=== PATIENT | female | born 1950 | race Caucasian/White ===

== ENCOUNTER → 2017-01-11 | Outpatient (CLI) | payer MEDICARE, MEDICAID ==
[~2017-01-11] MED LIST: ALBUAER3 INH; AMLO10 PO; ARIP1TAB11 PO; ATEN25TA PO; FENO160T PO; GLIP5TAB8 PO; HYDR-3583 PO; LANTUS2P SC; METF500T PO; METH750T PO; NEXI40CA PO; PARO40TA2 PO; POTA-243 PO; POTA10TA2 PO; TRIA37.53 PO; VALS1TAB63 PO
[2017-01-11 08:52] LABS: HEMATOCRIT 41.2 % (35.0-46.0); MEAN CELL VOLUME 82.8 FL (80.0-100.0); MEAN CORPUSCULAR HEMOGLOBIN 27.8 PG (27.0-34.0); MEAN CORPUSCULAR HGB CONC 33.6 % (32.0-36.0); PLATELET COUNT 276 TH/MM3 (150-450); RED BLOOD COUNT 4.98 MIL/MM3 (4.00-5.30); RED CELL DISTRIBUTION WIDTH 14.8 % (11.6-17.2); REVIEW FLAG FINAL; WHITE BLOOD COUNT 9.8 TH/MM3 (4.0-11.0)
[2017-01-11 09:09] LABS: ALKALINE PHOSPHATASE 124 U/L (45-117); ALT (GPT) 50 U/L (10-53); ANION GAP 8 MEQ/L (5-15); AST (GOT) 32 U/L (15-37); BICARBONATE 29.3 MEQ/L (21.0-32.0); BLOOD UREA NITROGEN 19 MG/DL (7-18); CHLORIDE 101 MEQ/L (98-107); GLOMERULAR FILTRATION RATE 68 ML/MIN (>89); GLUCOSE,FASTING 98 MG/DL (74-99); POTASSIUM 4.6 MEQ/L (3.5-5.1); SODIUM (NA) 138 MEQ/L (136-145); TOTAL BILIRUBIN ADULT 0.4 MG/DL (0.2-1.0)
[2017-01-11 09:44] LABS: WESTERGREN SEDIMENTATION RATE 12 mm/hr (0-30)
[2017-01-11 14:06] LABS: HEMOGLOBIN A1b 2.1 %; HEMOGLOBIN Ao 83.6 %
== END ==
LOC: CLAB 08:21
DX: E11.65 Type 2 diabetes mellitus with hyperglycemia (principal); M05.79 Rheumatoid arthritis with rheumatoid factor of multiple sites without organ or systems involvement
CPT/HCPCS: 36415; 80053; 83036; 85027; 85652

== ENCOUNTER → 2017-03-14 | Outpatient (CLI) | payer MEDICARE, MEDICAID ==
[~2017-03-14] MED LIST changes: +ASPI81TA11 PO; +LANTINJ SQ; +VENTAER INH
== END ==
LOC: CLAB 07:54
PROVIDERS: ATTEND Physician Assistant Surgical
DX: M51.26 Other intervertebral disc displacement, lumbar region (principal)
CPT/HCPCS: 36415; 82565; 84520

== ENCOUNTER → 2017-04-30 | Outpatient (CLI) | payer MEDICARE, MEDICAID ==
[2017-04-30 07:04] LABS: AUTOMATED NEUTROPHIL # 6.2 TH/MM3 (1.8-7.7); BASOPHIL # 0.1 TH/MM3 (0-0.2); BASOPHIL % 0.6 % (0.0-2.0); EOSINOPHIL # 0.1 TH/MM3 (0-0.4); EOSINOPHIL % 1.1 % (0.0-4.0); HEMATOCRIT 38.9 % (35.0-46.0); HEMO FLAGS DIFF FINAL; LYMPH % 38.9 % (9.0-44.0); LYMPHOCYTE # 4.8 TH/MM3 (1.0-4.8); MEAN CELL VOLUME 84.2 FL (80.0-100.0); MEAN CORPUSCULAR HEMOGLOBIN 28.4 PG (27.0-34.0); MEAN CORPUSCULAR HGB CONC 33.7 % (32.0-36.0); MONO % 9.7 % (0.0-8.0); NEUT % 49.7 % (16.0-70.0); PLATELET COUNT 331 TH/MM3 (150-450); RED BLOOD COUNT 4.61 MIL/MM3 (4.00-5.30); RED CELL DISTRIBUTION WIDTH 15.8 % (11.6-17.2); WHITE BLOOD COUNT 12.4 TH/MM3 (4.0-11.0)
[2017-04-30 07:21] LABS: MICRO ALBUMIN RANDOM URINE RAW 18.4 MG/L (0.0-30.0)
[2017-04-30 07:32] LABS: ANION GAP 7 MEQ/L (5-15); BICARBONATE 30.1 MEQ/L (21.0-32.0); BLOOD UREA NITROGEN 12 MG/DL (7-18); CHLORIDE 102 MEQ/L (98-107); GLOMERULAR FILTRATION RATE 85 ML/MIN (>89); GLUCOSE,FASTING 103 MG/DL (74-99); POTASSIUM 4.6 MEQ/L (3.5-5.1); SODIUM (NA) 139 MEQ/L (136-145)
[2017-04-30 07:40] LABS: HDL CHOLESTEROL 47.6 MG/DL (40.0-60.0); LDL CHOLESTEROL 129 MG/DL (0-99)
[2017-04-30 15:40] LABS: HEMOGLOBIN A1a 1.1 %; HEMOGLOBIN A1b 2.3 %; HEMOGLOBIN Ao 83.1 %
== END ==
LOC: CLAB 06:37
PROVIDERS: ATTEND Physician Assistant Surgical
DX: M51.26 Other intervertebral disc displacement, lumbar region (principal); E11.65 Type 2 diabetes mellitus with hyperglycemia
CPT/HCPCS: 36415; 80048; 80061; 82043; 83036; 85025; 86140

== ENCOUNTER 2017-05-06 08:47 | Observation (INO) | payer MEDICARE, OTHER ==
[2017-05-06] VITALS (7 sets, daily range): BP systolic 120–179; BP diastolic 59–82; PULSE 66–74; RESP 17–18; TEMP 97.3–98.6; O2SAT 96–98
[~2017-05-06] VITALS: Ht 175.3 cm; Wt 82.0 kg
[~2017-05-06 08:47] MED LIST changes: -ASPI81TA11 PO; -LANTINJ SQ; -VENTAER INH
[2017-05-06] MEDS ORDERED: SODIUM CHLORIDE 0.9% FLUSH 10 ML FLUSH IVF PRN (09:00)
[2017-05-06] MEDS ORDERED: SODIUM CHLORID 0.9% 500 ML INJ 500 ML IV ONE (09:00)
[2017-05-06] MEDS ORDERED: ASPIRIN 325 MG TAB PO ONE (09:00)
[2017-05-06] MEDS: NITROGLYCERIN 0.4 MG SL 25 TABS/BTL SL SCH ×3 (09:05→09:16)
[2017-05-06] MEDS ORDERED: LANTINJ SQ (09:07)
[2017-05-06] MEDS ORDERED: VENTAER INH (09:07)
--- NOTE | 2017-05-06 09:13 | PD ---
HPI Chief Complaint: Chest Pain Time Seen by Provider: 08:53 Travel History International Travel<30 days: No Contact w/Intl Traveler<30days: No Traveled to known affect area: No History of Present Illness HPI 66 yo F c/o cp x 30 hours, first noticed after waking up yesterday morning at 3am. Location is left chest with radiation to the back. Pain is worse with inspiration. No radiation of pain at rest. No exertional component. No shortness of breath reported. + Hx of a "smoker's cough." No fever. No similar prior pains. Pt underwent cath in 2005 which revealed normal coronary arteries. +Hx tobaccoism, HTN and DM. +Family hx CAD. 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 One asa yesterday was helpful somewhat. PFSH Past Medical History Cardiac Catheterization: Yes Cardiovascular Problems: Yes COPD: Yes Diabetes: Yes Patient Takes Glucophage: Yes Diminished Hearing: No GERD: Yes Hypertension: Yes Respiratory: Yes Influenza Vaccination: No ?: Not Past Surgical History Cholecystectomy: Yes Hysterectomy: Yes Neurologic Surgery: Yes (discectomy) Social History Alcohol Use: No Tobacco Use: Yes Substance Use: No Allergies-Medications (Allergen,Severity, Reaction): Coded Allergies: Lipitor (Verified Allergy, Severe, 05/06/17) Lovastatin (Verified Allergy, Severe, ANAPHYLAXIS TO STATINS, 05/06/17) Sulfa (Verified Allergy, Severe, Itching, 05/06/17) Reported Meds & Prescriptions Reported Meds & Active Scripts Active Glipizide 5 Mg Tab 5 Mg PO BIDAC Take 30 minutes before a meal Atenolol 25 Mg Tab 25 Mg PO DAILY Triamterene-Hydrochlorothiazide 37.5-25 Mg Cap 1 Cap PO DAILY Norvasc (Amlodipine Besylate) 10 Mg Tab 10 Mg PO DAILY Nexium (Esomeprazole DR) 40 Mg Capdr 40 Mg PO DAILY Reported Lantus Solostar Pen Inj (Insulin Glargine) 300 Unit/3 Ml Pen 1 Units SQ DIRECTED Ventolin Hfa 18 GM Inh (Albuterol Sulfate) 90 Mcg/Act Aer 2 Puff INH Q4-6H PRN Paroxetine (Paroxetine HCl) 40 Mg Tab 40 Mg PO DAILY Hydrocodone-Acetaminophen 10-325 mg Tab 1 Tab PO Q4H PRN Aripiprazole 5 Mg Tab 5 Mg PO DAILY Valsartan 40 Mg Tab 20 Mg PO BID Potassium Chloride ER (Potassium Chloride) 10 Meq Tab 10 Meq PO DAILY Metformin (Metformin HCl) 500 Mg Tab 500 Mg PO BIDPC With meals Review of Systems Except as stated in HPI: all other systems reviewed are Neg General / Constitutional: No: Fever Respiratory: Positive: Cough Physical Exam Narrative GENERAL: 66 yo F, pleasant, NAD, WNWD SKIN: Warm and dry. HEAD: Atraumatic. Normocephalic. EYES: Pupils equal and round. No scleral icterus. No injection or drainage. ENT: No nasal bleeding or discharge. Mucous membranes pink and moist. NECK: Trachea midline. No JVD. CARDIOVASCULAR: Regular rate and rhythm. RESPIRATORY: No accessory muscle use. Clear to auscultation. Breath sounds equal bilaterally. GASTROINTESTINAL: Abdomen soft, non-tender, nondistended. Hepatic and splenic margins not palpable. MUSCULOSKELETAL: Extremities without clubbing, cyanosis, or edema. No obvious deformities. No sign of DVT. NEUROLOGICAL: Awake and alert. No obvious cranial nerve deficits. Motor grossly within normal limits. Five out of 5 muscle strength in the arms and legs. Normal speech. PSYCHIATRIC: Appropriate mood and affect; insight and judgment normal. Data Data Last Documented VS Vital Signs Date Time Temp Pulse Resp B/P Pulse Ox O2 Delivery O2 Flow Rate FiO2 05/06/17 10:25 Room Air 05/06/17 10:20 67 18 125/61 96 05/06/17 08:54 98.6 Orders Electrocardiogram (05/06/17 08:58) Basic Metabolic Panel (Bmp) (05/06/17 08:58) Ckmb (Isoenzyme) Profile (05/06/17 08:58) Complete Blood Count With Diff (05/06/17 08:58) Magnesium (Mg) (05/06/17 08:58) Prothrombin Time / Inr (Pt) (05/06/17 08:58) Act Partial Throm Time (Ptt) (05/06/17 08:58) Troponin I (05/06/17 08:58) Chest, Single Ap (05/06/17 08:58) Ecg Monitoring (05/06/17 08:58) Bilateral Bp Monitoring (05/06/17 08:58) Iv Access Insert/Monitor (05/06/17 08:58) Oximetry (05/06/17 08:58) Oxygen Administration (05/06/17 08:58) Aspirin (Aspirin) (05/06/17 09:00) Sodium Chloride 0.9% Flush (Ns Flush) (05/06/17 09:00) Nitroglycerin Sl (Nitrostat Sl) (05/06/17 09:00) Sodium Chlorid 0.9% 500 Ml Inj (Ns 500 M (05/06/17 09:00) Ct Pulmonary Angiogram (05/06/17 09:01) Magnesium Sulfate 1 Gm Premix (Magnesium (05/06/17 10:15) Iohexol 350 Inj (Omnipaque 350 Inj) (05/06/17 10:14) Admit Order (Ed Use Only) (05/06/17 10:46) Labs Laboratory Tests Test 05/06/17 08:55 White Blood Count 15.2 TH/MM3 Red Blood Count 4.79 MIL/MM3 Hemoglobin 13.5 GM/DL Hematocrit 40.2 % Mean Corpuscular Volume 83.9 FL Mean Corpuscular Hemoglobin 28.2 PG Mean Corpuscular Hemoglobin 33.6 % Concent Red Cell Distribution Width 15.4 % Platelet Count 370 TH/MM3 Mean Platelet Volume 7.6 FL Neutrophils (%) (Auto) 57.6 % Lymphocytes (%) (Auto) 32.6 % Monocytes (%) (Auto) 7.7 % Eosinophils (%) (Auto) 1.1 % Basophils (%) (Auto) 1.0 % Neutrophils # (Auto) 8.6 TH/MM3 Lymphocytes # (Auto) 5.0 TH/MM3 Monocytes # (Auto) 1.2 TH/MM3 Eosinophils # (Auto) 0.2 TH/MM3 Basophils # (Auto) 0.2 TH/MM3 CBC Comment DIFF FINAL Differential Comment Prothrombin Time 10.7 SEC Prothromb Time International 1.0 RATIO Ratio Activated Partial 25.9 SEC Thromboplast Time Sodium Level 139 MEQ/L Potassium Level 4.1 MEQ/L Chloride Level 105 MEQ/L Carbon Dioxide Level 24.7 MEQ/L Anion Gap 9 MEQ/L Blood Urea Nitrogen 17 MG/DL Creatinine 0.70 MG/DL Estimat Glomerular Filtration 84 ML/MIN Rate Random Glucose 211 MG/DL Calcium Level 9.4 MG/DL Magnesium Level 1.1 MG/DL Total Creatine Kinase 63 U/L Troponin I LESS THAN 0.02 NG/ML MDM Medical Decision Making Medical Screen Exam Complete: Yes Emergency Medical Condition: Yes Medical Record Reviewed: Yes Differential Diagnosis NSTEMI, unstable angina, coronary vasospasm, PE, PTX, aortic dissection, pericarditis, myocarditis, endocarditis, PNA, esophageal disease, aneurysm, musculoskeletal etiologies, anxiety, cocaine/sympathomimetic abuse Narrative Course EKG shows sinus arrhythmia rhythm with sinus arrhythmia, rate 67 no T-wave inversion and flattening or ischemic injury pattern otherwise Last [address] Angiography 05/06/17 09 Signed Impressions: Service Date/Time: Saturday, May 06, 2017 09:57 - CONCLUSION: 1. No evidence of pulmonary embolism. Dat Sinclair MD Chest X-Ray 05/06/17 0858 Signed Impressions: Service Date/Time: Saturday, May 06, 2017 09:27 - CONCLUSION: No acute disease. Dat Sinclair MD CBC & BMP Diagram 05/06/17 08:55 Tn < 0.02 Mg 1.1 INR 1.0 1gIV Mg started. [employer] protocol considered next most reasonable step for patient. Pt is agreeable with plan. D/w Dr Karimi. Diagnosis Primary Impression: Chest pain Qualified Code: R07.9 - Chest pain, unspecified type Additional Impression: Pulmonary nodule Admitting Information Admitting Physician Requests: Observation Jeb Gamez MD May 06, 2017 09:13
[2017-05-06 09:27] LABS: APTT (PATIENT) 25.9 SEC (24.3-30.1); PROTHROMBIN TIME - PATIENT 10.7 SEC (9.8-11.6)
--- NOTE | 2017-05-06 09:44 | RADRPT ---
EXAM DATE/TIME: 05/06/2017 09:27 [facility] COMPARISON: No previous studies available for comparison. INDICATIONS : Chest pain MEDICAL HISTORY : Chronic obstructive pulmonary disease. Emphysema. Diabetes mellitus type II. SURGICAL HISTORY : None. ENCOUNTER: Initial ACUITY: 2 days PAIN SCORE: 5/10 LOCATION: Bilateral middle chest FINDINGS: A single view of the chest demonstrates the lungs to be symmetrically aerated without evidence of mas s, infiltrate or effusion. The cardiomediastinal contours are unremarkable. Osseous structures are intact. CONCLUSION: No acute disease. Dat Sinclair MD on May 06, 2017 at 9:41 Board Certified Radiologist. This report was verified electronically.
[2017-05-06 09:50] LABS: BICARBONATE 24.7 MEQ/L (21.0-32.0); MAGNESIUM 1.1 MG/DL (1.5-2.5)
[2017-05-06 09:52] LABS: AUTOMATED NEUTROPHIL # 8.6 TH/MM3 (1.8-7.7); BASOPHIL # 0.2 TH/MM3 (0-0.2); EOSINOPHIL # 0.2 TH/MM3 (0-0.4); EOSINOPHIL % 1.1 % (0.0-4.0); HEMATOCRIT 40.2 % (35.0-46.0); HEMO FLAGS DIFF FINAL; LYMPH % 32.6 % (9.0-44.0); MEAN CELL VOLUME 83.9 FL (80.0-100.0); MEAN CORPUSCULAR HEMOGLOBIN 28.2 PG (27.0-34.0); MEAN CORPUSCULAR HGB CONC 33.6 % (32.0-36.0); MONO % 7.7 % (0.0-8.0); NEUT % 57.6 % (16.0-70.0); PLATELET COUNT 370 TH/MM3 (150-450); RED BLOOD COUNT 4.79 MIL/MM3 (4.00-5.30); RED CELL DISTRIBUTION WIDTH 15.4 % (11.6-17.2); WHITE BLOOD COUNT 15.2 TH/MM3 (4.0-11.0)
[2017-05-06 09:53] LABS: GLOMERULAR FILTRATION RATE 84 ML/MIN (>89)
[2017-05-06 09:54] LABS: ANION GAP 9 MEQ/L (5-15); CHLORIDE 105 MEQ/L (98-107); POTASSIUM 4.1 MEQ/L (3.5-5.1); SODIUM (NA) 139 MEQ/L (136-145)
[2017-05-06 09:55] LABS: BLOOD UREA NITROGEN 17 MG/DL (7-18)
[2017-05-06 09:58] LABS: CREATINE KINASE 63 U/L (26-192)
[2017-05-06] MEDS ORDERED: IOHEXOL 350 MG/ML 10 ML VIAL (for RAD DIAG) IV ONE (10:14)
[2017-05-06] MEDS ORDERED: MAGNESIUM SULFATE 1 GM PREMIX 100 ML IV ONE (10:15)
--- NOTE | 2017-05-06 10:20 | RADRPT ---
EXAM DATE/TIME: 05/06/2017 09:57 [facility] COMPARISON: CHEST SINGLE AP, May 06, 2017, 9:27. INDICATIONS : Left sided chest pain radiating to back. Evaluate for embolism. IV CONTRAST: 65 cc Omnipaque 350 (iohexol) IV RADIATION DOSE: 19.95 CTDIvol (mGy) MEDICAL HISTORY : Chronic obstructive pulmonary disease. Gastroesophageal reflux disease. Hypertension.Diabetes. SURGICAL HISTORY : Cholecystectomy. Hysterectomy. ENCOUNTER: Initial ACUITY: 2 days PAIN SCALE: 3/10 LOCATION: Left chest TECHNIQUE: Volumetric scanning of the chest was performed using a pulmonary embolism protocol MIP images were re constructed. Using automated exposure control and adjustment of the mA and/or kV according to patien t size, radiation dose was kept as low as reasonably achievable to obtain optimal diagnostic quality images. DICOM format image data is available electronically for review and comparison. FINDINGS: Mild diffuse subpleural interstitial prominence bilaterally of unknown chronicity. Subcentimeter lymp h nodes in the mediastinum and hilar regions. Coronary artery calcification is noted. Atherosclerotic plaquing of the aorta is present. There are no effusions. There is no evidence of pulmonary embolism . No consolidation. CONCLUSION: 1. No evidence of pulmonary embolism. Dat Sinclair MD on May 06, 2017 at 10:16 Board Certified Radiologist. This report was verified electronically.
[2017-05-06] MEDS ORDERED: LACTULOSE SYRUP 20 GM/30 ML CUP PO PRN (10:45)
[2017-05-06] MEDS ORDERED: SENNOSIDES 8.6 MG TAB PO PRN (10:45)
[2017-05-06] MEDS ORDERED: NALOXONE HCL 0.4 MG/ML AMP IV PRN (10:45)
[2017-05-06] MEDS ORDERED: MAGNESIUM HYDROXIDE SUSP 30 ML CUP PO PRN (10:45)
[2017-05-06] MEDS ORDERED: SODIUM CHLOR 0.9% 1000 ML INJ 1,000 ML IV SCH (10:45)
[2017-05-06] MEDS ORDERED: ONDANSETRON HCL 4 MG/2 ML VIAL IVP PRN (10:45)
[2017-05-06] MEDS ORDERED: ACETAMINOPHEN 325 MG TAB PO PRN (10:45)
[2017-05-06] MEDS ORDERED: BISACODYL 10 MG SUPP RECTAL PRN (10:45)
[2017-05-06] MEDS ORDERED: SODIUM CHLORIDE 0.9% FLUSH 10 ML FLUSH IV FLUSH PRN (10:45)
[2017-05-06] MEDS ORDERED: METFORMIN HOLD POST IV CONTRAST SCH (12:15)
--- NOTE | 2017-05-06 13:25 | HHI.HP ---
HPI Service [facility] Primary Care Physician Jeanie Mitchell MD Admission Diagnosis Chest Pain; HypoMg Diagnoses: Chief Complaint: Chest pain Travel History International Travel<30 Days: No Contact w/Intl Traveler <30 Da: No Traveled to Known Affected Are: No History of Present Illness Ms. Gupta is a pleasant 66-year-old female with a history of diabetes mellitus, COPD, rheumatoid arthritis, hypertension, tobacco abuse who presents to the emergency department due to chest pain. On 05/05/2017 at around 3 AM patient woke up around 3:00 and started experiencing left-sided chest pain , abdominal in nature, radiating to her back. She denies any nausea or vomiting but reports diaphoresis. Her pain was about 5 out of 10 and persisted until she presented to the emergency department on 05/06/2017 where her pain subsided with nitroglycerin. She took aspirin 81 mg at home. She has COPD and denies any cough more than usual, fever or chills. No abdominal pain. No changes in bowel or bladder habits. Review of Systems Except as stated in HPI: all other systems reviewed are Neg Past Family Social History Past Medical History Hypertension, rheumatoid arthritis, osteoarthritis, COPD, diabetes mellitus Past Surgical History 2 back surgeries. Reported Medications Glipizide 5 Mg Tab 5 Mg PO BIDAC Take 30 minutes before a meal Atenolol 25 Mg Tab 25 Mg PO DAILY Triamterene-Hydrochlorothiazide 37.5-25 Mg Cap 1 Cap PO DAILY Norvasc (Amlodipine Besylate) 10 Mg Tab 10 Mg PO DAILY Nexium (Esomeprazole DR) 40 Mg Capdr 40 Mg PO DAILY Reported Lantus Solostar Pen Inj (Insulin Glargine) 300 Unit/3 Ml Pen 1 Units SQ DIRECTED Ventolin Hfa 18 GM Inh (Albuterol Sulfate) 90 Mcg/Act Aer 2 Puff INH Q4-6H PRN Paroxetine (Paroxetine HCl) 40 Mg Tab 40 Mg PO DAILY Hydrocodone-Acetaminophen 10-325 mg Tab 1 Tab PO Q4H PRN Aripiprazole 5 Mg Tab 5 Mg PO DAILY Valsartan 40 Mg Tab 20 Mg PO BID Potassium Chloride ER (Potassium Chloride) 10 Meq Tab 10 Meq PO DAILY Metformin (Metformin HCl) 500 Mg Tab 500 Mg PO BIDPC With meals Allergies: Coded Allergies: Lipitor (Verified Allergy, Severe, 05/06/17) Lovastatin (Verified Allergy, Severe, ANAPHYLAXIS TO STATINS, 05/06/17) Sulfa (Verified Allergy, Severe, Itching, 05/06/17) Family History Mother and father had diabetes mellitus, heart disease and hypertension. Social History Patient used to smoke 2 packs a day, started smoking when she was 15. She currently smokes 1 pack a day. Denies using any illicit drugs or alcohol. Physical Exam Vital Signs Vital Signs Date Time Temp Pulse Resp B/P Pulse Ox O2 Delivery O2 Flow Rate FiO2 05/06/17 12:15 97.3 68 17 138/77 96 05/06/17 11:43 66 18 153/82 98 Room Air 05/06/17 10:25 Room Air 05/06/17 10:20 67 18 125/61 96 Room Air 05/06/17 09:26 66 18 120/59 98 Room Air 05/06/17 09:25 18 05/06/17 09:11 67 18 147/77 98 Room Air 05/06/17 09:03 98 Room Air 05/06/17 08:56 74 98 Room Air 05/06/17 08:54 98.6 74 18 179/77 98 Physical Exam GENERAL: This is a well-nourished, well-developed patient, in no apparent distress. SKIN: No rashes, ecchymoses or lesions. Warm and dry. HEAD: Atraumatic. Normocephalic. No temporal or scalp tenderness. EYES: Pupils equal round and reactive. No injection or drainage. ENT: Nose without bleeding, purulent drainage or septal hematoma. Airway patent. NECK: Trachea midline. No lymphadenopathy. Supple, nontender, no meningeal signs. CARDIOVASCULAR: Regular rate and rhythm without murmurs, gallops, or rubs. No JVD. RESPIRATORY: Moderate air entry. No wheezes, rales, or rhonchi. GASTROINTESTINAL: Abdomen soft, non-tender, nondistended. No guarding. MUSCULOSKELETAL: Extremities without clubbing, cyanosis, or edema. NEUROLOGICAL: Awake and alert. Cranial nerves II through XII intact. No focal neurological deficits. Normal speech. Laboratory Laboratory Tests Test 05/06/17 05/06/17 08:55 11:55 White Blood Count 15.2 Red Blood Count 4.79 Hemoglobin 13.5 Hematocrit 40.2 Mean Corpuscular Volume 83.9 Mean Corpuscular Hemoglobin 28.2 Mean Corpuscular Hemoglobin 33.6 Concent Red Cell Distribution Width 15.4 Platelet Count 370 Mean Platelet Volume 7.6 Neutrophils (%) (Auto) 57.6 Lymphocytes (%) (Auto) 32.6 Monocytes (%) (Auto) 7.7 Eosinophils (%) (Auto) 1.1 Basophils (%) (Auto) 1.0 Neutrophils # (Auto) 8.6 Lymphocytes # (Auto) 5.0 Monocytes # (Auto) 1.2 Eosinophils # (Auto) 0.2 Basophils # (Auto) 0.2 CBC Comment DIFF FINAL Differential Comment Prothrombin Time 10.7 Prothromb Time International 1.0 Ratio Activated Partial 25.9 Thromboplast Time Sodium Level 139 Potassium Level 4.1 Chloride Level 105 Carbon Dioxide Level 24.7 Anion Gap 9 Blood Urea Nitrogen 17 Creatinine 0.70 Estimat Glomerular Filtration 84 Rate Random Glucose 211 Calcium Level 9.4 Magnesium Level 1.1 Total Creatine Kinase 63 Troponin I LESS THAN 0.02 LESS THAN 0.02 Result Diagram: 05/06/17 0855 05/06/17 [address] Angiography 05/06/17 0901 Signed Impressions: Service Date/Time: Saturday, May 06, 2017 09:57 - CONCLUSION: 1. No evidence of pulmonary embolism. Dat Sinclair MD Chest X-Ray 05/06/17 0858 Signed Impressions: Service Date/Time: Saturday, May 06, 2017 09:27 - CONCLUSION: No acute disease. Dat Sinclair MD Assessment and Plan Problem List: (1) Chest pain ICD Code: R07.9 Status: Acute (2) Hypertension ICD Code: I10 Status: Acute (3) Diabetes ICD Code: E11.9 Status: Acute (4) COPD (chronic obstructive pulmonary disease) ICD Code: J44.9 Status: Acute Assessment and Plan Ms. Gupta is a pleasant 66-year-old female with a history of hypertension, diabetes mellitus, Percocet abuse who presents to the emergency department due to chest pain that started on 05/05/2017 at around 3 AM. Patient had left-sided chest pain radiating to her back and associated with diaphoresis. Her pain subsided after nitroglycerin in the ED. - Acute chest pain - Patient has high risk features including tobacco use, hypertension, diabetes mellitus. - We'll obtain a nuclear stress test. Patient had coffee at 4 AM and as such nuclear stress test did not be completed today. - Continue aspirin 81 mg daily. Will continue beta patty after nuclear stress test. - We'll obtain lipid profile and calculated ASCVD score. Based on ASCVD score will consider statin. - Diabetes mellitus - Start Levemir 10 units daily at bedtime and sliding scale insulin. - Hypomagnesemia - magnesium 1.1. We'll replace with intravenous magnesium sulfate 2 g now and 2 g at night. - Hypertension - continue valsartan 20 mg twice a day, triamtereneHCTZ 30 7. 5 25 milligrams by mouth daily. - Anxiety, depression - continue Paxil, aripiprazole. Full code. Lovenox 40mg Q24hrs. Problem Qualifiers (1) Chest pain: Qualified Code: R07.9 - Chest pain, unspecified type Narcisa Karimi DO May 06, 2017 1:25 pm
--- NOTE | 2017-05-06 13:25 | EKG ---
Date Performed: 05/06/2017 Time Performed: 11:47:38 PTAGE: 66 years EKG: Sinus rhythm WITH MARKED SINUS ARRHYTHMIA POSSIBLE RIGHT VENTRICULAR CONDUCTION DELAY BORDERLINE ECG PREVIOUS TRACING : 05/06/2017 08.57 Compared to prior tracing no significant change DOCTOR: Michelle Miller Interpretating Date/Time 05/06/2017 13:19:50
--- NOTE | 2017-05-06 13:43 | EKG ---
Date Performed: 05/06/2017 Time Performed: 08:57:47 PTAGE: 66 years EKG: Sinus rhythm WITH MARKED SINUS ARRHYTHMIA POSSIBLE RIGHT VENTRICULAR CONDUCTION DELAY Compared to previous tracin g, the patient no longer has enough voltage to make a diagnosis of Left ventricular hypertrophy, ther e's been an overall improvement in the nonspecific ST-T wave changes BORDERLINE ECG PREVIOUS TRACING : 11/20/2002 10.17 DOCTOR: Michelle Miller Interpretating Date/Time 05/06/2017 13:43:13
[2017-05-06] MEDS ORDERED: GLUCAGON 1 MG/ML VIAL OTHER PRN (14:30)
[2017-05-06] MEDS ORDERED: DEXTROSE 50% IN WATER 50 ML VIAL(D50) IV PRN (14:30)
[2017-05-06] MEDS: MAGNESIUM SULFATE 1 GM PREMIX 100 ML IV SCH ×2 (14:36→15:27)
[2017-05-06] MEDS ORDERED: ENOXAPARIN SODIUM 40 MG/0.4 ML SYRINGE SQ SCH (15:00)
[2017-05-06] MEDS ORDERED: INSULIN ASPART SUPPLEMENTAL SCALE SQ SCH (16:00)
[2017-05-06] MEDS ORDERED: REGADENOSON INJ 0.4 MG/5 ML SYR IV ONE (17:34)
--- NOTE | 2017-05-06 18:36 | RADRPT ---
EXAM DATE/TIME: 05/06/2017 16:50 [facility] COMPARISON: No previous studies available for comparison. INDICATIONS : Left sided chest pain radiating to back for two days. Angina. DOSE: 27.4 mCi Tc99m Myoview at stress. 8.2 mCi Tc99m Myoview at rest. 0.4 mg Lexiscan STRESS SYMPTOMS: Chest pain and dyspnea. EJECTION FRACTION: 66% MEDICAL HISTORY : Gastroesophageal reflux disease. Chronic obstructive pulmonary disease. Diabetes mellitus type 2. Hyp ertension. SURGICAL HISTORY : Cholecystectomy. Hysterectomy. ENCOUNTER: Initial ACUITY: 2 days PAIN SCALE: 6/10 LOCATION: Left chest TECHNIQUE: The patient underwent pharmacologic stress with infusion of prescribed dose. Continuous ECG tracing was monitored during stress. Gated SPECT imaging was performed after stress and conventional SPECT i maging was performed at rest. The examination was performed on a SPECT/CT scanner, both attenuation and non-corrected datasets were reviewed. FINDINGS: DISTRIBUTION: The maximum perfused segment at stress is in the lateral wall. PERFUSION STUDY: The pattern of perfusion at stress is within normal limits. GATED STUDY: There is intact wall motion and thickening without hypokinetic or dyskinetic segments. CONCLUSION: No areas of ischemia are seen. RISK CATEGORY: Low (<1% Annual Mortality Rate) Marcos Gordon MD on May 06, 2017 at 18:33 Board Certified Radiologist. This report was verified electronically.
[2017-05-06] MEDS ORDERED: ASPI81TA11 PO (19:19)
[2017-05-06] MEDS ORDERED: MAGNESIUM SULFATE 1 GM PREMIX 100 ML IV SCH (21:00)
[2017-05-06] MEDS ORDERED: DOCUSATE SODIUM 50 MG/SENNA 8.6 MG TAB PO SCH (21:00)
[2017-05-06] MEDS ORDERED: SODIUM CHLORIDE 0.9% FLUSH 10 ML FLUSH IV FLUSH SCH (21:00)
[2017-05-06] MEDS ORDERED: INSULIN DETEMIR 100 UNITS/ML VIAL SQ SCH (21:00)
[2017-05-06] MEDS ORDERED: VALSARTAN 40 MG TAB PO SCH (21:00)
[2017-05-07] MEDS ORDERED: PARoxetine HCL 20 MG TAB PO SCH (09:00)
[2017-05-07] MEDS ORDERED: PANTOPRAZOLE SOD 40 MG DELAYED RELEASE TAB PO SCH (09:00)
[2017-05-07] MEDS ORDERED: ARIPiprazole 5 MG TAB PO SCH (09:00)
[2017-05-07] MEDS ORDERED: TRIAMTERENE/HCTZ 37.5 MG/25 MG CAP PO SCH (09:00)
--- NOTE | 2017-05-07 15:00 | EKG ---
Date Performed: 05/06/2017 Time Performed: 15:03:31 PTAGE: 66 years EKG: Sinus rhythm WITH MARKED SINUS ARRHYTHMIA Since previous tracing, no significant change noted BORDERLINE ECG PREVIOUS TRACING : 05/06/2017 11.47 DOCTOR: Emanuel Daiz Interpretating Date/Time 05/07/2017 14:59:15
--- NOTE | 2017-05-09 07:38 | TR ---
Date Performed: 05/06/2017 Time Performed: 17:09:01 DOCTOR: Kartik Stephens DRUG LIST: CLINICAL HISTORY: REASON FOR TEST: REASON FOR ENDING: OBSERVATION: CONCLUSION: Lexiscan stress test was performed under standard four minute protocol. Radionuclid e was injected one minute prior to ending the test. No electrocardiographic abormalities were present to suggest ischemia. Nuclear imaging and interpretation are pending. COMMENTS:
[2017-05-10] MEDS ORDERED: NEXI40CA PO (11:16)
== END 2017-05-06 19:44 | disposition home or self-care (01) ==
LOC: PHED 08:47 → PHEDA 10:48 → PH3B 12:01
PROVIDERS: ADMIT Hospitalist; ATTEND Hospitalist
DX: R07.89 Other chest pain (principal); R06.00 Dyspnea, unspecified; R91.1 Solitary pulmonary nodule; I49.8 Other specified cardiac arrhythmias; E83.42 Hypomagnesemia; R61 Generalized hyperhidrosis; M54.9 Dorsalgia, unspecified; I25.119 Atherosclerotic heart disease of native coronary artery with unspecified angina pectoris; I10 Essential (primary) hypertension; E11.9 Type 2 diabetes mellitus without complications; J44.9 Chronic obstructive pulmonary disease, unspecified; M06.9 Rheumatoid arthritis, unspecified; K21.9 Gastro-esophageal reflux disease without esophagitis; F41.9 Anxiety disorder, unspecified; F32.9 Major depressive disorder, single episode, unspecified; M19.90 Unspecified osteoarthritis, unspecified site; F17.200 Nicotine dependence, unspecified, uncomplicated; Z79.899 Other long term (current) drug therapy; Z79.84 Long term (current) use of oral hypoglycemic drugs
CPT/HCPCS: 71010; 71275; 78452; 80048; 82550; 83735; 84484; 85025; 85610; 85730; 93005; 93017; 96361; 96365; 99285; A9502; G0378; J1650; J2785; J3475; J7030; J7040; Q9967

== ENCOUNTER → 2017-05-15 | Outpatient (CLI) | payer MEDICARE, OTHER ==
[~2017-05-15] MED LIST changes: -ALBUAER3 INH; +ARIP1TAB12 PO; +ASPI81TA11 PO; -FENO160T PO; +LANTINJ SQ; -LANTUS2P SC; -METH750T PO; -POTA-243 PO; +VENTAER INH
[2017-05-15 08:19] LABS: AUTOMATED NEUTROPHIL # 7.8 TH/MM3 (1.8-7.7); BASOPHIL # 0.1 TH/MM3 (0-0.2); BASOPHIL % 0.4 % (0.0-2.0); EOSINOPHIL # 0.1 TH/MM3 (0-0.4); EOSINOPHIL % 0.7 % (0.0-4.0); HEMATOCRIT 39.5 % (35.0-46.0); HEMO FLAGS DIFF FINAL; LYMPH % 33.5 % (9.0-44.0); LYMPHOCYTE # 4.5 TH/MM3 (1.0-4.8); MEAN CELL VOLUME 84.7 FL (80.0-100.0); MEAN CORPUSCULAR HEMOGLOBIN 27.2 PG (27.0-34.0); MEAN CORPUSCULAR HGB CONC 32.1 % (32.0-36.0); MONO % 7.1 % (0.0-8.0); NEUT % 58.3 % (16.0-70.0); PLATELET COUNT 336 TH/MM3 (150-450); RED BLOOD COUNT 4.66 MIL/MM3 (4.00-5.30); RED CELL DISTRIBUTION WIDTH 16.6 % (11.6-17.2); WHITE BLOOD COUNT 13.4 TH/MM3 (4.0-11.0)
== END ==
LOC: CLAB 07:04
PROVIDERS: ATTEND Physician Assistant Surgical
DX: M51.26 Other intervertebral disc displacement, lumbar region (principal); R89.9 Unspecified abnormal finding in specimens from other organs, systems and tissues
CPT/HCPCS: 36415; 85025; 86140

== ENCOUNTER → 2017-06-01 | Outpatient (CLI) | payer MEDICARE, OTHER ==
[~2017-06-01] MED LIST changes: -ARIP1TAB11 PO
== END ==
LOC: CLAB 08:59
PROVIDERS: ATTEND Physician Assistant Surgical
DX: M54.5 Low back pain (principal)
CPT/HCPCS: 36415; 82565; 84520

== ENCOUNTER → 2017-08-13 | Outpatient (CLI) | payer MEDICARE, OTHER ==
[~2017-08-13] MED LIST changes: +ARIP1TAB11 PO; +LEVO750T3 PO; +NYST1000 SWISH-SWAL
[2017-08-13 07:47] LABS: ANION GAP 6 MEQ/L (5-15); BLOOD UREA NITROGEN 11 MG/DL (7-18); CHLORIDE 102 MEQ/L (98-107); GLUCOSE,FASTING 87 MG/DL (74-99); POTASSIUM 3.9 MEQ/L (3.5-5.1); SODIUM (NA) 134 MEQ/L (136-145)
[2017-08-13 07:48] LABS: GLOMERULAR FILTRATION RATE 87 ML/MIN (>89)
[2017-08-13 07:49] LABS: HDL CHOLESTEROL 57.6 MG/DL (40.0-60.0); INDIRECT BILIRUBIN 0.2 MG/DL (0.0-0.8); TOTAL BILIRUBIN ADULT 0.3 MG/DL (0.2-1.0)
[2017-08-13 09:57] LABS: HEMOGLOBIN A1a 1.1 %; HEMOGLOBIN A1b 2.5 %; HEMOGLOBIN Ao 82.1 %; HEMOGLOBIN LA1C 2.2 %; HEMOGLOBIN P3 4.2 %
== END ==
LOC: CLAB 06:46
DX: M15.0 Primary generalized (osteo)arthritis (principal); E11.65 Type 2 diabetes mellitus with hyperglycemia; I25.10 Atherosclerotic heart disease of native coronary artery without angina pectoris; E78.2 Mixed hyperlipidemia; Z78.9 Other specified health status; I11.9 Hypertensive heart disease without heart failure
CPT/HCPCS: 36415; 80048; 80061; 80076; 83036; 86140; 86200; 86430

== ENCOUNTER → 2018-01-29 | Outpatient (CLI) | payer MEDICARE, OTHER ==
[~2018-01-29] MED LIST changes: -ASPI81TA11 PO; +ASPI81TA23 PO
[2018-01-29 07:59] LABS: ALBUMIN 3.6 GM/DL (3.4-5.0); ALT (GPT) 46 U/L (10-53); AST (GOT) 36 U/L (15-37); BICARBONATE 25.5 MEQ/L (21.0-32.0); BLOOD UREA NITROGEN 12 MG/DL (7-18); CALCIUM 9.3 MG/DL (8.5-10.1); CHLORIDE 99 MEQ/L (98-107); CREATININE 0.73 MG/DL (0.50-1.00); GLOMERULAR FILTRATION RATE 80 ML/MIN (>89); GLUCOSE,FASTING 106 MG/DL (74-99); SODIUM (NA) 134 MEQ/L (136-145)
[2018-01-29 08:02] LABS: ALKALINE PHOSPHATASE 114 U/L (45-117); DIRECT BILIRUBIN ADULT 0.1 MG/DL (0.0-0.2); TOTAL BILIRUBIN ADULT 0.4 MG/DL (0.2-1.0); TOTAL PROTEIN 7.3 GM/DL (6.4-8.2)
[2018-01-29 08:04] LABS: CHOLESTEROL/ HDL RATIO 5.86 RATIO; HDL CHOLESTEROL 34.8 MG/DL (40.0-60.0)
[2018-01-30 21:03] LABS: HEMOGLOBIN A1C 7.1 % (4.3-6.0)
== END ==
LOC: CLAB 06:42
PROVIDERS: ATTEND Physician Assistant Medical
DX: E11.9 Type 2 diabetes mellitus without complications (principal); I25.10 Atherosclerotic heart disease of native coronary artery without angina pectoris; E78.2 Mixed hyperlipidemia; I11.9 Hypertensive heart disease without heart failure; E78.5 Hyperlipidemia, unspecified
CPT/HCPCS: 36415; 80053; 80061; 82248; 83036

== ENCOUNTER 2018-04-27 21:03 | Emergency (ER) | payer MEDICARE, OTHER ==
[~2018-04-27] VITALS: Ht 175.3 cm; Wt 88.8 kg
[2018-04-27 21:18] VITALS: BP 113/57; PULSE 71; RESP 18; TEMP 98.4; O2SAT 98
[2018-04-27] MEDS ORDERED: CLIN150C14 PO (21:57)
--- NOTE | 2018-04-27 21:57 | PD ---
HPI Chief Complaint: Skin Problem Time Seen by Provider: 21:52 Travel History International Travel<30 days: No Contact w/Intl Traveler<30days: No Traveled to known affect area: No History of Present Illness HPI Patient presents with complaints of left foot redness. States yesterday the redness stopped in her ankle however it is progressed past her ankle today. First noticed the redness 2 days ago. Denies any nausea vomiting diarrhea or fever. Denies any associated chest pain shortness of breath urinary or bowel symptoms. Pain 0 out of 10 as patient has diabetic neuropathy. Denies any trauma. Denies any cuts or scratches. Denies athlete's foot. Denies any aggravating or alleviating factors. PFSH Past Medical History Hx Anticoagulant Therapy: Yes (ASA) Arthritis: Yes (RA) Asthma: Yes (as a child) Autoimmune Disease: No Anxiety: No Depression: Yes Heart Rhythm Problems: No Cancer: No Cardiac Catheterization: Yes Cardiovascular Problems: Yes (HTN, CAD) High Cholesterol: No Chest Pain: Yes Congestive Heart Failure: No COPD: Yes Cerebrovascular Accident: No Diabetes: Yes Patient Takes Glucophage: No Diminished Hearing: No Endocrine: No GERD: Yes Genitourinary: No Hiatal Hernia: Yes Hypertension: Yes Immune Disorder: No Kidney Stones: No Musculoskeletal: Yes Neurologic: No Psychiatric: Yes Reproductive: No Respiratory: Yes Migraines: No Renal Failure: No Seizures: No Sickle Cell Disease: No Sleep Apnea: No Thyroid Disease: No Ulcer: Yes (stomach bleed) Tetanus Vaccination: > 5 Years Influenza Vaccination: No Past Surgical History Abdominal Surgery: Yes (gallbladder removed) AICD: No Arteriovenous Shunt: No Cardiac Surgery: No Cholecystectomy: Yes Ear Surgery: No Eye Surgery: No Genitourinary Surgery: No Gynecologic Surgery: Yes (hysterectormy) Hysterectomy: Yes Insulin Pump: No Joint Replacement: No Neurologic Surgery: Yes (discectomy) Oral Surgery: No Pacemaker: No Thoracic Surgery: No Other Surgery: Yes Social History Alcohol Use: No Tobacco Use: Yes (1 ppd) Substance Use: No Allergies-Medications (Allergen,Severity, Reaction): Coded Allergies: Sulfa (Sulfonamide Antibiotics) (Unverified Allergy, Severe, Itching, 08/03) atorvastatin (Unverified Allergy, Severe, 08/03/17) lovastatin (Unverified Allergy, Severe, ANAPHYLAXIS TO STATINS, 9/29/17) Reported Meds & Prescriptions Reported Meds & Active Scripts Active Clindamycin (Clindamycin HCl) 150 Mg Cap 300 Mg PO TID Valsartan 40 Mg Tab 20 Mg PO BID Potassium Chloride ER (Potassium Chloride) 10 Meq Tab 10 Meq PO DAILY Triamterene-Hydrochlorothiazide 37.5-25 Mg Cap 1 Cap PO DAILY Paroxetine (Paroxetine HCl) 40 Mg Tab 40 Mg PO DAILY Norvasc (Amlodipine Besylate) 10 Mg Tab 10 Mg PO DAILY Aripiprazole 10 Mg Tab 10 Mg PO DAILY Aspirin EC (Aspirin) 81 Mg Tabdr 81 Mg PO DAILY Glipizide 5 Mg Tab 5 Mg PO BIDAC Take 30 minutes before a meal Atenolol 25 Mg Tab 25 Mg PO DAILY Nexium (Esomeprazole DR) 40 Mg Capdr 40 Mg PO DAILY Reported Lantus Solostar Pen Inj (Insulin Glargine) 300 Unit/3 Ml Pen 1 Units SQ DIRECTED Ventolin Hfa 18 GM Inh (Albuterol Sulfate) 90 Mcg/Act Aer 2 Puff INH Q4-6H PRN Hydrocodone-Acetaminophen 10-325 mg Tab 1 Tab PO Q4H PRN Metformin (Metformin HCl) 500 Mg Tab 500 Mg PO BIDPC With meals Review of Systems General / Constitutional: No: Fever Eyes: No: Visual changes HENT: No: Headaches Cardiovascular: No: Chest Pain or Discomfort Respiratory: No: Shortness of Breath Gastrointestinal: No: Abdominal Pain Genitourinary: No: Dysuria Musculoskeletal: No: Pain Skin: Positive Change in Pigmentation, No Rash Neurologic: No: Weakness Psychiatric: No: Depression Endocrine: No: Polydipsia Hematologic/Lymphatic: No: Easy Bruising Physical Exam Narrative GENERAL: Well-nourished, well-developed patient. SKIN: Focused skin assessment warm/dry. HEAD: Normocephalic. EYES: No scleral icterus. No injection or drainage. NECK: Supple, trachea midline. No JVD or lymphadenopathy. CARDIOVASCULAR: Regular rate and rhythm without murmurs, gallops, or rubs. RESPIRATORY: Breath sounds equal bilaterally. No accessory muscle use. GASTROINTESTINAL: Abdomen soft, normal bowel sounds, non-tender, nondistended. MUSCULOSKELETAL: No cyanosis, or edema. BACK: Nontender without obvious deformity. No CVA tenderness. Examination of left foot reveals mild edema with erythema on the dorsal aspect extending approximately 1 inch proximal to the ankle. Good dorsal pedis pulse good capillary refill. No tinea pedis noted between the toes Data Data Last Documented VS Vital Signs Date Time Temp Pulse Resp B/P (MAP) Pulse Ox O2 Delivery O2 Flow Rate FiO2 04/27/18 21:18 98.4 71 18 113/57 (75) 98 Orders Orders Clindamycin Inj (Cleocin Inj) (04/27/18 22:00) MDM Medical Decision Making Medical Screen Exam Complete: Yes Emergency Medical Condition: Yes Differential Diagnosis Venous stasis changes, cellulitis, phlebitis Narrative Course Assessment plan discussed with patient and daughter at bedside. Diagnosis Primary Impression: Cellulitis Qualified Codes: L03.116 - Cellulitis of left lower limb Additional Instructions: Elevation, Motrin or Tylenol for pain. Oral antibiotic as prescribed. Follow- up with PCP. Return to emergency room with any new symptoms or progression of erythema. Med/Other Pt SpecificInfo: Prescription(s) given Scripts Clindamycin (Clindamycin) 150 Mg Cap 300 MG PO TID for Infection, #60 CAP 0 Refills Prov: Chidi Gaona MD 04/27/18 Disposition: 01 DISCHARGE HOME Condition: Good Chidi Gaona MD Apr 27, 2018 21:57
[2018-04-27] MEDS ORDERED: CLINDAMYCIN PHOS 600 MG/4 ML VIAL IM ONE (22:00)
[2018-04-27 22:53] VITALS: BP 129/66
== END 2018-04-27 22:55 | disposition home or self-care (01) ==
LOC: PHED 21:03
DX: L03.116 Cellulitis of left lower limb (principal); E11.40 Type 2 diabetes mellitus with diabetic neuropathy, unspecified; M06.9 Rheumatoid arthritis, unspecified; J44.9 Chronic obstructive pulmonary disease, unspecified; I10 Essential (primary) hypertension; Z72.0 Tobacco use; Z79.01 Long term (current) use of anticoagulants
CPT/HCPCS: 96372